=== PATIENT | female | born 1985 | race Caucasian/White ===

== ENCOUNTER 2023-05-08 02:53 | Emergency (ER) | payer OTHER ==
[~2023-05-08] VITALS: Ht 165.1 cm; Wt 108.9 kg
[2023-05-08] MEDS ORDERED: APAP (03:46)
[2023-05-08] MEDS ORDERED: CODEINE (03:46)
[2023-05-08] MEDS ORDERED: FAMO20 PO (03:48)
[2023-05-08] MEDS ORDERED: ERGO50000 PO ×2 (03:48→03:59)
[2023-05-08] MEDS ORDERED: [UNRECOGNIZED DRUG - CODE] SL (03:48)
[2023-05-08] MEDS ORDERED: FOLI1 PO (03:49)
[2023-05-08] MEDS ORDERED: MONT10T PO (03:51)
[2023-05-08] MEDS ORDERED: FEROSUL325 M1 PO (03:53)
[2023-05-08] MEDS ORDERED: ROSUVASTATIN CAL5 MG PO (03:54)
[2023-05-08] MEDS ORDERED: ACETAMINOPHEN500 M2 PO (03:54)
[2023-05-08] MEDS ORDERED: METHOTREXATE2.510 PO (03:54)
[2023-05-08] MEDS ORDERED: CELEBREX200 MG PO (03:54)
[2023-05-08] MEDS ORDERED: COLACE100 MG PO (03:55)
[2023-05-08] MEDS ORDERED: ALBU90OI INH (03:56)
[2023-05-08] MEDS ORDERED: ZYRTEC10 M2 PO (03:58)
[2023-05-08] MEDS ORDERED: EPIPEN0.3 MG/0.3 IM (03:58)
[2023-05-08] MEDS ORDERED: DULO30 PO (03:58)
[2023-05-08] MEDS ORDERED: DULO60 PO (03:58)
[2023-05-08] MEDS ORDERED: FLUOCINONIDE15 GM (04:02)
[2023-05-08] MEDS ORDERED: Lisinopril-Hct1 EAC4 PO (04:03)
[2023-05-08] MEDS ORDERED: FLAGYL500 M1 PO (04:04)
[2023-05-08] MEDS ORDERED: Robaxin750 MG PO (04:04)
[2023-05-08] MEDS ORDERED: MUPIROCIN2210 TOP (04:05)
[2023-05-08] MEDS ORDERED: TRIDERM28.4 GM TOP (04:06)
[2023-05-08] MEDS ORDERED: IBU600 MG PO (04:10)
[2023-05-08] MEDS ORDERED: COMPAZINE10 MG PO (04:10)
[2023-05-08 04:58] VITALS: BP 114/90
== END 2023-05-08 04:45 | disposition home or self-care (01) ==
LOC: ER 02:53
DX: G43.909 Migraine, unspecified, not intractable, without status migrainosus (principal); I10 Essential (primary) hypertension; Z88.2 Allergy status to sulfonamides; Z88.5 Allergy status to narcotic agent; Z88.6 Allergy status to analgesic agent
CPT/HCPCS: 96374; 96375; 99284-25; J0780; J1200; J1885; J7030